=== PATIENT | male | born 1985 | race Caucasian/White ===

== ENCOUNTER 2020-07-04 20:59 | Emergency (ER) | payer BC ==
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
--- NOTE | 2020-07-04 21:33 | XRAY Report ---
PROCEDURE: Hand 3 View RT INDICATIONS: trauma TECHNIQUE: 3 views of the hand(s) acquired. COMPARISON: None FINDINGS: Bones: No dislocations. No suspicious bony lesions. There is mild distortion of the distal fifth metacarpal bone, and what appears to be possibly an old fracture in that area. Superimposed is a new fracture with acute fracture plane at the metacarpal neck area. Soft tissues: No suspicious soft tissue calcifications. IMPRESSION: Suspected old fifth metacarpal neck fracture, with superimposed acute fracture at the metacarpal neck area. Alternatively, this could represent an unusual appearance of an acute fracture without prior t rauma. Reviewed by: Kenton Li MD on 07/04/2020 9:32 PM PDT Approved by: Kenton Li MD on 07/04/2020 9:32 PM PDT Station ID: [id number]
[2020-07-04 22:34] VITALS: BP 135/76
== END 2020-07-04 22:34 | disposition home or self-care (01) ==
LOC: ED 20:59
DX: S62.336A Displaced fracture of neck of fifth metacarpal bone, right hand, initial encounter for closed fracture (principal); W22.8XXA Striking against or struck by other objects, initial encounter
CPT/HCPCS: 29125; 99283

== ENCOUNTER 2021-09-10 11:19 | Outpatient (CLI) | payer BC | END 2021-09-10 11:20 | disposition home or self-care (01) | LOC: LAB.S 11:19 | PROVIDERS: ATTEND Family Medicine | DX: D35.02 Benign neoplasm of left adrenal gland (principal) | CPT/HCPCS: 36415; 81599; 82088; 82533; 83835; 84244 ==

== ENCOUNTER 2021-09-22 07:03 | Outpatient (CLI) | payer BC ==
[2021-09-23 11:32] LABS: HEPATITIS B SURFACE ANTIGEN NON-REACTIVE (NON-REACTIVE)
== END 2021-09-22 07:04 | disposition home or self-care (01) ==
LOC: LAB.S 07:03
PROVIDERS: ATTEND Family Medicine
DX: Z13.9 Encounter for screening, unspecified (principal); D35.02 Benign neoplasm of left adrenal gland
CPT/HCPCS: 36415; 82088; 82533; 84244; 86317; 87340